=== PATIENT | female | born 1970 | race Caucasian/White ===

== ENCOUNTER → 2016-10-20 | Outpatient (CLI) | payer BC, OTHER ==
--- NOTE | 2016-10-21 07:06 | MM ---
Reason for exam: additional evaluation requested from abnormal screening. Last mammogram was performed 1 month ago. History: Patient history of other cancer. Implants in both breasts, 1999. Excisional biopsy of the left breast, 1988. Physical Findings: Nurse did not find any significant physical abnormalities on exam. MG Work Up Marianela W/Imp W/CAD L LM and MLO view(s) were taken of the left breast. Prior study comparison: September 17, 2016, bilateral MG screening mammo implant/CAD. October 12, 2014, bilateral MG diagnostic mammo w CAD JOAN. The breast tissue is heterogeneously dense. This may lower the sensitivity of mammography. There is no discrete abnormality under compression area appear to disperse. These results were verbally communicated with the patient and result sheet given to the patient on 10/20/16. ASSESSMENT: Probably benign, BI-RAD 3 RECOMMENDATION: Follow-up diagnostic mammogram of the left breast in 6 months.
== END | disposition home or self-care (01) ==
LOC: RADMAMWWP 15:36
PROVIDERS: ATTEND Family Medicine
DX: R92.8 Other abnormal and inconclusive findings on diagnostic imaging of breast (principal)

== ENCOUNTER → 2018-07-13 | Outpatient (CLI) | payer BC ==
[2018-07-13 17:40] LABS: Basophils # (A) 0.1 k/uL (0-0.2); Basophils % (A) 1 %; Eosinophils # (A) 0.5 k/uL (0-0.7); Eosinophils % (A) 8 %; HCT 43.8 % (34.0-46.0); HGB 14.1 gm/dL (11.4-16.0); Lymphocytes # (A) 2.8 k/uL (1.0-4.8); Lymphocytes % (A) 41 %; MCH 32.2 pg (25.0-35.0); MCHC 32.2 g/dL (31.0-37.0); MCV 99.8 fL (80.0-100.0); Mean Platelet Volume 7.7; Monocytes # (A) 0.3 k/uL (0-1.0); Monocytes % (A) 4 %; Neutrophils # (A) 2.9 k/uL (1.3-7.7); Neutrophils % (A) 43 %; Platelet Count 222 k/uL (150-450); RBC 4.39 m/uL (3.80-5.40); RDW 12.5 % (11.5-15.5); WBC 6.8 k/uL (3.8-10.6)
[2018-07-14 02:50] LABS: Albumin 4.2 g/dL (3.80-4.90); Albumin/Globulin Ratio 2.21 (1.20-2.10); Anion Gap 3.2 mmol/L (4.00-12.00); Calcium 9.1 mg/dL (8.7-10.3); Carbon Dioxide 30.8 mmol/L (21.6-31.8); Globulin 1.9 g/dL (2.1-3.7); Potassium 4.2 mmol/L (3.5-5.5); Total Bilirubin 0.1 mg/dL (0.2-1.2); Total Protein 6.1 g/dL (6.2-8.2)
== END | disposition home or self-care (01) ==
LOC: LABWHC1 17:14
PROVIDERS: ATTEND Family Medicine
DX: R19.7 Diarrhea, unspecified (principal)
CPT/HCPCS: 36415; 80053; 85025

== ENCOUNTER → 2018-09-03 | Outpatient (CLI) | payer BC ==
[2018-09-03 12:22] LABS: HCT 50.1 % (34.0-46.0); HGB 16.2 gm/dL (11.4-16.0); MCH 32.7 pg (25.0-35.0); MCHC 32.3 g/dL (31.0-37.0); MCV 101.4 fL (80.0-100.0); Macrocytosis Slight; Mean Platelet Volume 7.2; Platelet Count 284 k/uL (150-450); RBC 4.94 m/uL (3.80-5.40); WBC 6.6 k/uL (3.8-10.6)
[2018-09-03 12:52] LABS: Erythrocyte Sedimentation Rate 3 mm/hr (0-20)
[2018-09-05 10:50] LABS: Gliadin AB IgA, Unit 0.3 U/mL
== END | disposition home or self-care (01) ==
LOC: LABWHC1 11:42
PROVIDERS: ATTEND Internal Medicine Gastroenterology
DX: K52.9 Noninfective gastroenteritis and colitis, unspecified (principal)
CPT/HCPCS: 36415; 83516; 85027; 85652; 86140

== ENCOUNTER → 2018-09-30 | Outpatient (CLI) | payer BC ==
--- NOTE | 2018-10-07 10:03 | MM ---
Reason for exam: additional evaluation requested from prior study. Last mammogram was performed 1 year and 11 months ago. History: Patient history of other cancer. Implants in both breasts, 1999. Excisional biopsy of the left breast, 1988. Physical Findings: Nurse Summary: a 0.5 cm dominant mass at 2 and 7 o'clock in the right breast . MG 3D Diag Mammo Imp W/Cad JOAN Bilateral CC, MLO, and ID view(s) were taken. Prior study comparison: October 20, 2016, left breast MG work up tomasa w/imp w/CAD L. September 17, 2016, bilateral MG screening mammo implant/CAD. The breast tissue is extremely dense which could obscure a lesion on mammography. There are benign-appearing bilateral breast calcifications. Abnormal morphology or implant correlate clinically for injury. ASSESSMENT: Incomplete: need additional imaging evaluation, BI-RAD 0 RECOMMENDATION: Ultrasound of the right breast.
--- NOTE | 2018-10-07 10:14 | USB ---
History: Patient history of other cancer. Implants in both breasts, 1999. Excisional biopsy of the left breast, 1988. US Breast Limited RT Right limited breast ultrasound including focal area of concern, retroareolar and axilla demonstrates a 0.4 x 0.3 x 0.5 cm oval cystic lesion at the BB at 2 o'clock that previously measured 0.5 x 0.4 x 0.5 in 2015. A 0.6 x 0.3 x 0.7 cm oval cystic lesion at the BB at 7 o'clock that previously measured 0.7 x 0.2 x 0.6 in 2015, and a 0.5 x 0.3 x 0.3 cm oval cystic lesion that previously measured 0.8 x 0.3 x 0.4 in 2015 all appear similar and benign. These results were verbally communicated with the patient and result sheet given to the patient on 10/03/18. ASSESSMENT: Benign, BI-RAD 2 RECOMMENDATION: Routine screening mammogram of both breasts in 1 year.
== END | disposition home or self-care (01) ==
LOC: RADMAMWWP 15:56
PROVIDERS: ATTEND Family Medicine
DX: R92.8 Other abnormal and inconclusive findings on diagnostic imaging of breast (principal)
CPT/HCPCS: 77062; 77066

== ENCOUNTER 2021-07-28 04:49 | Emergency (ER) | payer BC ==
[2021-07-28 05:04] VITALS: TEMP 98.8
[2021-07-28] MEDS ORDERED: SODIUM CHLORIDE 0.9% 500 ML 500 ML IV STA (05:32)
[2021-07-28] MEDS ORDERED: ONDANSETRON 4 MG/2 ML VIAL IVP STA (05:32)
[2021-07-28] MEDS ORDERED: MORPHINE SULFATE 4 MG/ML SYRINGE IV STA (05:32)
--- NOTE | 2021-07-28 05:40 | ED ---
Abdominal Pain HPI - General Chief Complaint: Abdominal Pain Stated Complaint: Abd Pain Time Seen by Provider: 07/28/21 05:06 Source: patient, family Mode of arrival: ambulatory Limitations: no limitations - History of Present Illness MD Complaint: abdominal pain Onset/Timin -: hour(s) Location: diffuse Radiation: none Migration to: no migration Severity: severe Quality: stabbing Consistency: constant Improves With: nothing Worsens With: nothing Associated Symptoms: nausea, vomiting, diarrhea - Related Data Previous Rx's Medication Instructions Recorded Dicyclomine [Bentyl] 20 mg PO QID #15 tablet 07/28/21 Famotidine [Pepcid] 20 mg PO BID #14 tablet 07/28/21 Allergies Allergy/AdvReac Type Severity Reaction Status Date / Time No Known Allergies Allergy Verified 07/28/21 05:04 Review of Systems ROS Statement: Those systems with pertinent positive or pertinent negative responses have been documented in the HPI. ROS Other: All systems not noted in ROS Statement are negative. Constitutional: Denies: fever, chills, weakness Respiratory: Denies: cough, dyspnea Cardiovascular: Denies: chest pain, palpitations, edema Gastrointestinal: Reports: abdominal pain, nausea, vomiting, diarrhea. Denies: constipation, hematemesis Genitourinary: Denies: dysuria, hematuria Musculoskeletal: Denies: back pain Skin: Denies: rash Neurological: Denies: headache, weakness, numbness Past Medical History Past Medical History: Asthma History of Any Multi-Drug Resistant Organisms: None Reported Past Surgical History: Breast Surgery, Tonsillectomy Additional Past Surgical History / Comment(s): colonoscopy Past Psychological History: No Psychological Hx Reported Smoking Status: Current some day smoker Past Alcohol Use History: None Reported Past Drug Use History: None Reported General Exam Limitations: no limitations General appearance: alert, in no apparent distress Head exam: Present: atraumatic, normocephalic Eye exam: Present: normal appearance. Absent: scleral icterus, conjunctival injection Neck exam: Present: normal inspection Respiratory exam: Present: normal lung sounds bilaterally. Absent: respiratory distress, wheezes, rales, rhonchi, stridor Cardiovascular Exam: Present: regular rate, normal rhythm, normal heart sounds. Absent: systolic murmur, diastolic murmur, rubs, gallop GI/Abdominal exam: Present: soft. Absent: distended, tenderness, guarding, rebound, rigid, mass Extremities exam: Present: normal inspection, normal capillary refill. Absent: pedal edema, calf tenderness Back exam: Present: normal inspection. Absent: CVA tenderness (R), CVA tenderness (L) Neurological exam: Present: alert Skin exam: Present: warm, dry, intact, normal color. Absent: rash Course Vital Signs 07/28/21 07/28/21 07/28/21 04:58 05:48 06:46 Temperature 98.8 F Pulse Rate 65 60 60 Respiratory 20 18 18 Rate Blood Pressure 97/69 114/67 100/63 O2 Sat by Pulse 98 97 97 Oximetry Medical Decision Making - Lab Data Result diagrams: 07/28/21 05:44 07/28/21 05:44 Lab Results 07/28/21 07/28/21 Range/Units 05:44 05:44 WBC 9.6 (3.8-10.6) k/uL RBC 4.72 (3.80-5.40) m/uL Hgb 15.0 (11.4-16.0) gm/dL Hct 44.3 (34.0-46.0) % MCV 93.7 (80.0-100.0) fL MCH 31.7 (25.0-35.0) pg MCHC 33.8 (31.0-37.0) g/dL RDW 12.0 (11.5-15.5) % Plt Count 230 (150-450) k/uL MPV 8.5 Neutrophils % 71 % Lymphocytes % 24 % Monocytes % 4 % Eosinophils % 1 % Basophils % 0 % Neutrophils # 6.8 (1.3-7.7) k/uL Lymphocytes # 2.3 (1.0-4.8) k/uL Monocytes # 0.3 (0-1.0) k/uL Eosinophils # 0.1 (0-0.7) k/uL Basophils # 0.0 (0-0.2) k/uL Sodium 136 L (137-145) mmol/L Potassium 3.6 (3.5-5.1) mmol/L Chloride 105 (98-107) mmol/L Carbon Dioxide 21 L (22-30) mmol/L Anion Gap 10 mmol/L BUN 25 H (7-17) mg/dL Creatinine 0.54 (0.52-1.04) mg/dL Est GFR (CKD-EPI)AfAm >90 (>60 ml/min/1.73 sqM) Est GFR (CKD-EPI)NonAf >90 (>60 ml/min/1.73 sqM) Glucose 126 H (74-99) mg/dL Calcium 9.4 (8.4-10.2) mg/dL Total Bilirubin 0.7 (0.2-1.3) mg/dL AST 32 (14-36) U/L ALT 33 (4-34) U/L Alkaline Phosphatase 88 (38-126) U/L C-Reactive Protein 3.3 H (<1.0) mg/dL Total Protein 6.8 (6.3-8.2) g/dL Albumin 4.2 (3.5-5.0) g/dL Amylase 35 (30-110) U/L Lipase 33 (23-300) U/L Disposition Clinical Impression: Abdominal pain Disposition: HOME SELF-CARE Condition: Good Instructions (If sedation given, give patient instructions): Abdominal Pain (ED) Prescriptions: Dicyclomine [Bentyl] 20 mg PO QID #15 tablet Famotidine [Pepcid] 20 mg PO BID #14 tablet Is patient prescribed a controlled substance at d/c from ED?: No Referrals: Louann Ac MD [Primary Care Provider] - 1-2 days
[2021-07-28 05:49] VITALS: RESP 18
[2021-07-28 05:54] LABS: Basophils % (A) 0 %; Eosinophils # (A) 0.1 k/uL (0-0.7); Eosinophils % (A) 1 %; HCT 44.3 % (34.0-46.0); Lymphocytes # (A) 2.3 k/uL (1.0-4.8); Lymphocytes % (A) 24 %; MCH 31.7 pg (25.0-35.0); MCHC 33.8 g/dL (31.0-37.0); MCV 93.7 fL (80.0-100.0); Mean Platelet Volume 8.5; Monocytes # (A) 0.3 k/uL (0-1.0); Monocytes % (A) 4 %; Neutrophils # (A) 6.8 k/uL (1.3-7.7); Neutrophils % (A) 71 %; Platelet Count 230 k/uL (150-450); RBC 4.72 m/uL (3.80-5.40); WBC 9.6 k/uL (3.8-10.6)
--- NOTE | 2021-07-28 06:05 | XR ---
EXAMINATION TYPE: XR abdomen acute w cxr DATE OF EXAM: 07/28/2021 COMPARISON: 10/16/2010 HISTORY: Abdominal pain. Vomiting. TECHNIQUE: 4 views FINDINGS: Lung bases are clear. Bowel gas pattern is normal. There is no sign of intestinal obstruction or pneumoperitoneum. Fecal pa ttern is normal. There is no evidence of a mass. There are no pathologic calcifications over the kidn eys. IMPRESSION: Nonacute abdomen. No cardiopulmonary disease. No adverse change.
[2021-07-28 06:06] LABS: ALT 33 U/L (4-34); AST 32 U/L (14-36); African American GFR (CKD) >90 (>60 ml/min/1.73 sqM); Albumin 4.2 g/dL (3.5-5.0); Alkaline Phosphatase 88 U/L (38-126); Amylase 35 U/L (30-110); Anion Gap 10 mmol/L; Blood Urea Nitrogen 25 mg/dL (7-17); C Reactive Protein 3.3 mg/dL (<1.0); Calcium 9.4 mg/dL (8.4-10.2); Carbon Dioxide 21 mmol/L (22-30); Chloride 105 mmol/L (98-107); Glucose 126 mg/dL (74-99); Lipase 33 U/L (23-300); Non-African American GFR(CKD) >90 (>60 ml/min/1.73 sqM); Potassium 3.6 mmol/L (3.5-5.1); Sodium 136 mmol/L (137-145); Total Bilirubin 0.7 mg/dL (0.2-1.3); Total Protein 6.8 g/dL (6.3-8.2)
[2021-07-28] MEDS ORDERED: MAG HYDROX/AL HYDROX/SIMETH 30 ML, HYOSCYAMINE ELIXIR 10 ML, LIDOCAINE VISCOUS 2% 10 ML PO STA ×3 (06:52)
[2021-07-28 07:52] VITALS: BP 104/64; PULSE 61
== END 2021-07-28 07:52 | disposition home or self-care (01) ==
LOC: EC 04:49
DX: R10.84 Generalized abdominal pain (principal); R11.2 Nausea with vomiting, unspecified; R19.7 Diarrhea, unspecified; J45.909 Unspecified asthma, uncomplicated; F17.200 Nicotine dependence, unspecified, uncomplicated
CPT/HCPCS: 36415; 80053; 82150; 83690; 85025; 86140; 74022; 99284; 96374; 96375; J2270; J2405

== ENCOUNTER → 2021-12-15 | Outpatient (CLI) | payer BC ==
--- NOTE | 2021-12-16 11:08 | US ---
EXAMINATION TYPE: US thyroid st tissue head/neck DATE OF EXAM: 12/15/2021 COMPARISON: NONE CLINICAL HISTORY: R22.1 SWELLING MASS. At right supraclavicular palpable is a mass with somewhat irregular borders measuring 1.5 x 1.0 x 1. 4cm. Vascular flow is noted centrally. This has some central hyperintensity may be abnormal lymph nod e. IMPRESSION: 1. There appears to be a suspicious lymph node at the level of palpable abnormality right supraclavic ular region. Consider biopsy.
== END | disposition home or self-care (01) ==
LOC: RADUSWWP 16:56
PROVIDERS: ATTEND Family Medicine
DX: R22.1 Localized swelling, mass and lump, neck (principal)
CPT/HCPCS: 76536

== ENCOUNTER → 2022-01-21 | Outpatient (CLI) | payer BC ==
--- NOTE | 2022-01-22 08:04 | CT ---
EXAMINATION TYPE: CT soft tissue neck w con DATE OF EXAM: 01/21/2022 COMPARISON: None HISTORY: h/o lump on right side of neck, bb was placed over it CT DLP: 604.1 mGycm CONTRAST: CT scan of the neck is performed with IV Contrast, patient injected with 100 mL of Isovue 300. Contrast enhanced CT of the neck was performed from the skull base through the lung apices. At the site of clinical concern right supraclavicular region there is a soft tissue mass noted measur ing 1.5 x 1.7 cm with mild surrounding spiculation. May reflect an abnormal lymph node. Consider tiss ue diagnosis. No additional nodules are seen within the supraclavicular regions. AIRWAY: The supraglottic, glottic, and subglottic portions of the airway appear patent and free of mass. SALIVARY GLANDS: The submandibular and parotid glands are free of mass or inflammatory process. THYROID GLAND: No nodules or masses seen. LYMPH NODES: No adenopathy seen greater than 1cm. LUNG APICES: No nodule or mass is seen. OTHER: Vascular structures are patent. No significant degenerative change of the cervical spine. N o abscess seen. IMPRESSION: At the site of clinical concern right supraclavicular region there is a soft tissue mass noted measur ing 1.5 x 1.7 cm with mild surrounding spiculation. May reflect an abnormal lymph node. Consider tiss ue diagnosis. No additional nodules are seen within the supraclavicular regions.
== END | disposition home or self-care (01) ==
LOC: RADCTMAIN 18:09
PROVIDERS: ATTEND Otolaryngology
DX: R22.1 Localized swelling, mass and lump, neck (principal)
CPT/HCPCS: 70491; Q9967

== ENCOUNTER 2022-02-19 08:51 | Day surgery (SDC) | payer BC ==
[2022-02-19 09:19] VITALS: RESP 16; TEMP 97.9
[2022-02-19] MEDS ORDERED: ALPRAZolam 0.5 MG TAB PO STA (09:19)
--- NOTE | 2022-02-19 10:29 | US ---
ULTRASOUND GUIDED CORE BIOPSY RIGHT NECK MASS: CLINICAL HISTORY: Right neck mass FINDINGS: The procedure was explained to the patient. The risks, complications, benefits and alternatives were discussed and any questions were answered. Informed consent was obtained. Patient was placed supin e on the ultrasound table and prepped and draped in the usual sterile fashion. Utilizing a 18 gauge needle, two passes were made into the right neck mass. Patient was stable throughout the procedure. Pathology is pending. All elements of maximal barrier and sterile technique were utilized. IMPRESSION: 1. Successful ultrasound guided core biopsy right neck mass.
[2022-02-19 10:38] VITALS: BP 115/69; PULSE 68
== END 2022-02-19 10:31 | disposition home or self-care (01) ==
LOC: RADPROMAIN 08:51
PROVIDERS: ATTEND Otolaryngology
DX: C76.0 Malignant neoplasm of head, face and neck (principal)
CPT/HCPCS: 21550; 38505; 76942; 88305; 88341; 88342

== ENCOUNTER → 2022-02-23 | Outpatient (CLI) | payer BC ==
--- NOTE | 2022-02-24 20:05 | MM ---
Reason for Exam: Screening (asymptomatic). Last mammogram was performed 3 year(s) and 5 month(s) ago. Patient History: Menarche at age 14. First Full-Term at age 23. Other cancer. 1988, Excisional Biopsy on the Left side. 1999, Bilateral Implants. Risk Values: Maggie 5 year model risk: 1.3%. NCI Lifetime model risk: 10.1%. Prior Study Comparison: 09/17/2016 Bilateral Screening Mammogram, [facility]. 10/20/2016 Left Diagnostic Mammogram, [facility]. 09/30/2018 Bilateral Diagnostic Mammogram, [facility]. Tissue Density: The breast tissue is heterogeneously dense. This may lower the sensitivity of mammography. Findings: Analyzed By CAD. Bilateral saline implants are demonstrated. The right implant is smaller and the capsule appears calcified. There is some underlying fluctuating nodularity on both sides for which ultrasound is recommended given the background of dense tissues. No suspicious calcifications are seen. Overall Assessment: Incomplete: need additional imaging evaluation, BI-RAD 0 Management: Diagnostic Breast Ultrasound of both breasts. Bilateral breast ultrasounds for fluctuating nodularity on a background of dense tissues. Electronically signed and approved by: Cassie Ovalle M.D. Radiologist
== END | disposition home or self-care (01) ==
LOC: RADMAMWWP 16:34
PROVIDERS: ATTEND Family Medicine
DX: Z12.31 Encounter for screening mammogram for malignant neoplasm of breast (principal)
CPT/HCPCS: 77063; 77067

== ENCOUNTER → 2022-03-20 | Outpatient (CLI) | payer BC | END | disposition home or self-care (01) | LOC: RADPETMAIN 16:46 | PROVIDERS: ATTEND Otolaryngology | DX: C44.42 Squamous cell carcinoma of skin of scalp and neck (principal) | CPT/HCPCS: 78815; A9552 ==

== ENCOUNTER 2023-02-15 16:01 | Emergency (ER) | payer BC ==
[2023-02-15 16:17] VITALS: TEMP 97.5
--- NOTE | 2023-02-15 17:54 | XR ---
EXAMINATION TYPE: XR soft tissue neck DATE OF EXAM: 02/15/2023 5:33 PM INDICATION: Patient age:Female; 52 years old; Reason for study: L neck swelling; COMPARISON: MRI 11/09/2022, CT 01/21/2022 TECHNIQUE: The soft tissues of the neck were imaged in frontal and lateral views. FINDINGS: There is increased opacification over the soft tissue of the anterior neck multiple surgica l clips are present. The osseous structures are grossly unremarkable.. IMPRESSION: Postsurgical changes with increased edema felt to be projecting over the anterior neck just below the mandible. Further evaluation recommended.
[2023-02-15] MEDS ORDERED: CEPHALEXIN 500 MG CAP PO STA (18:43)
[2023-02-15] MEDS ORDERED: SULFAMETHOX-TMP 800-160MG 1 EACH TAB PO STA (18:43)
--- NOTE | 2023-02-15 18:45 | ED ---
General Adult HPI - General Chief complaint: Shortness of Breath Stated complaint: EBONY-SOB Time Seen by Provider: 02/15/23 16:34 Source: patient Mode of arrival: ambulatory Limitations: no limitations - History of Present Illness Initial comments: This patient is a 52-year-old woman who presents evaluation of swelling to the left face/submandibular area. The patient states that this has come on over the past few hours. She does note that there appeared to be a small bite or something that she had scratched in that area prior to onset. Patient denies fever or chills. There is no change in speech. No change in swallowing. She tolerates oral intake -: hour(s) Location: face, neck Radiation: non-radiation Quality: dull Consistency: constant Improves with: none Worsens with: none Associated Symptoms: denies other symptoms - Related Data Home Medications Medication Instructions Recorded Confirmed Albuterol Inhaler [Ventolin Hfa 2 puff INHALATION RT-TID PRN 02/13/22 02/13/22 Inhaler] Citalopram Hydrobromide [CeleXA] 40 mg PO DAILY 02/13/22 02/13/22 HYDROcodone/APAP 7.5-325MG [Hiram 1 tab PO Q4H PRN 02/13/22 02/13/22 7.5-325] Multivitamin [Multivitamins Adult 1 each PO DAILY 02/13/22 02/13/22 Gummies] Tolterodine Tartrate [Detrol LA] 2 mg PO DAILY 02/13/22 02/13/22 busPIRone HCL 5 mg PO BID 02/13/22 02/13/22 Previous Rx's Medication Instructions Recorded Famotidine [Pepcid] 20 mg PO BID #14 tablet 07/28/21 Cephalexin [Keflex] 500 mg PO Q6HR #28 cap 02/15/23 Sulfamethox-Tmp 800-160Mg [Bactrim 1 each PO Q12HR #6 tab 02/15/23 Ds] Allergies Allergy/AdvReac Type Severity Reaction Status Date / Time No Known Allergies Allergy Verified 02/15/23 16:16 Review of Systems ROS Statement: Those systems with pertinent positive or pertinent negative responses have been documented in the HPI. ROS Other: All systems not noted in ROS Statement are negative. Constitutional: Denies: fever, chills, weakness Eyes: Denies: eye pain ENT: Denies: throat pain, congestion Respiratory: Denies: cough, dyspnea Cardiovascular: Denies: chest pain Gastrointestinal: Denies: nausea, vomiting Skin: Reports: as per HPI, lesions Neurological: Denies: headache, weakness Past Medical History Past Medical History: Asthma, Cancer Additional Past Medical History / Comment(s): skin cancer - face, back History of Any Multi-Drug Resistant Organisms: None Reported Past Surgical History: Breast Surgery, Tonsillectomy, Uterine Ablation Additional Past Surgical History / Comment(s): colonoscopy, skin cancer removed from face and back - basal cell Ca Past Anesthesia/Blood Transfusion Reactions: No Reported Reaction Past Psychological History: Anxiety Smoking Status: Former smoker Past Alcohol Use History: None Reported Past Drug Use History: Marijuana - Past Family History Father Family Medical History: Cancer Additional Family Medical History / Comment(s): prostate Cancer General Exam Limitations: no limitations General appearance: alert, in no apparent distress Head exam: Present: atraumatic, normocephalic Eye exam: Present: normal appearance. Absent: scleral icterus, conjunctival injection ENT exam: Present: normal oropharynx, mucous membranes moist Neck exam: Present: normal inspection, tenderness, full ROM. Absent: meningis mus Respiratory exam: Present: normal lung sounds bilaterally, other (The patient does have small area of cellulitis left submandibular with mild tenderness. There is no palpable fluid collection. No palpable mass). Absent: respiratory distress, wheezes, rales, rhonchi Cardiovascular Exam: Present: regular rate, normal rhythm, normal heart sounds. Absent: systolic murmur, diastolic murmur, rubs, gallop Neurological exam: Present: alert Skin exam: Present: warm, dry, erythema, other (Area of cellulitis as above). Absent: rash Course Vital Signs 02/15/23 02/15/23 02/15/23 16:13 17:00 18:00 Temperature 97.5 F L Pulse Rate 85 72 68 Respiratory 20 12 14 Rate Blood Pressure 116/81 117/77 106/72 O2 Sat by Pulse 99 97 97 Oximetry 02/15/23 19:34 Temperature Pulse Rate 67 Respiratory 18 Rate Blood Pressure 104/65 O2 Sat by Pulse 99 Oximetry EKG Findings - EKG Results: EKG: interpreted by ERMD, sinus rhythm (Rate 70 bpm), normal axis, normal QRS, normal ST/T, no acute changes - SD, Pacemaker, Normal: Normal tracing: normal tracing Medical Decision Making - Medical Decision Making This patient is 52-year-old woman with some cellulitis that appears to have developed from an abraded area that had been scratched. The patient did descr sharon feeling anxious and short of breath, but this appears to be due to anxiety. Soft tissue x-ray of the neck is obtained which I interpreted as showing normal airway diameter and no evidence of soft tissue air. The patient is started on antibiotics here and we discussed appropriate further care and follow-up as well as return parameters. Was pt. sent in by a medical professional or institution (, PA, SMOKE ROOM OPERATOR, urgent care, hospital, or fci...) When possible be specific @ -[No] Did you speak to anyone other than the patient for history (EMS, parent, family, police, friend...)? What history was obtained from this source @ -[No] Did you review nursing and triage notes (agree or disagree)? Why? @ -[I reviewed and agree with nursing and triage notes] Were old charts reviewed (outside hosp., previous admission, EMS record, old EKG, old radiological studies, urgent care reports/EKG's, fci records)? Report findings @ -[No old charts were reviewed] Differential Diagnosis (chest pain, altered mental status, abdominal pain women, abdominal pain men, vaginal bleeding, weakness, fever, dyspnea, syncope, headache, dizziness, GI bleed, back pain, seizure, CVA, palpatations, mental health, musculoskeletal)? @ -[Differential diagnosis of the patient's condition includes cellulitis, dental infection with blood was angina, other infectious conditions, trauma, hematoma, ALLERGIC reaction, amongst other conditions EKG interpreted by me (3pts min.). @ -[ X-rays interpreted by me (1pt min.). @ -[As above CT interpreted by me (1pt min.). @ -[None done] U/S interpreted by me (1pt. min.). @ -[None done] What testing was considered but not performed or refused? (CT, X-rays, U/S, labs)? Why? @ -[None] What meds were considered but not given or refused? Why? @ -[None] Did you discuss the management of the patient with other professionals (professionals i.e. , PA, SMOKE ROOM OPERATOR, lab, RT, psych nurse, social director, member service specialist, teacher, workplace rehabilitation officer, wrapper caser)? Give summary @ -[No] Was smoking cessation discussed for >3mins.? @ -[No] Was critical care preformed (if so, how long)? @ -[No] Were there social determinants of health that impacted care today? How? (Homelessness, low income, unemployed, alcoholism, drug addiction, transportation, low edu. Level, literacy, decrease access to med. care, nursing home, rehab)? @ -[No] Was there de-escalation of care discussed even if they declined (Discuss DNR or withdrawal of care, Hospice)? DNR status @ -[No] What co-morbidities impacted this encounter? (DM, HTN, Smoking, COPD, CAD, Cancer, CVA, ARF, Chemo, Hep., AIDS, mental health diagnosis, sleep apnea, morbid obesity)? @ -[None] Was patient admitted / discharged? Hospital course, mention meds given and route, prescriptions, significant lab abnormalities, going to OR and other pertinent info. @ -[Discharged Undiagnosed new problem with uncertain prognosis? @ -[No] Drug Therapy requiring intensive monitoring for toxicity (Heparin, Nitro, Insulin, Cardizem)? @ -[No] Were any procedures done? @ -[No] Diagnosis/symptom? @ -Cellulitis or wound infection of the left anterior neck Acute, or Chronic, or Acute on Chronic? @ -[Acute Uncomplicated (without systemic symptoms) or Complicated (systemic symptoms)? @ -[Uncomplicated Side effects of treatment? @ -[No] Exacerbation, Progression, or Severe Exacerbation? @ -[No] Poses a threat to life or bodily function? How? (Chest pain, USA, SD, pneumonia, PE, COPD, DKA, ARF, appy, cholecystitis, CVA, Diverticulitis, Homicidal, Suicidal, threat to staff... and all critical care pts) @ -[No] Disposition Clinical Impression: Cellulitis Disposition: HOME SELF-CARE Condition: Good Instructions (If sedation given, give patient instructions): Cellulitis (ED) Prescriptions: Sulfamethox-Tmp 800-160Mg [Bactrim Ds] 1 each PO Q12HR #6 tab Cephalexin [Keflex] 500 mg PO Q6HR #28 cap Is patient prescribed a controlled substance at d/c from ED?: No Referrals: Louann Ac MD [Primary Care Provider] - 1-2 days
[2023-02-15] MEDS ORDERED: ceFAZolin 1,000 MG VIAL (IM USE) IM STA (18:54)
[2023-02-15 19:34] VITALS: BP 104/65; PULSE 67; RESP 18
== END 2023-02-15 19:37 | disposition home or self-care (01) ==
LOC: EC 16:01
DX: L03.221 Cellulitis of neck (principal); J45.909 Unspecified asthma, uncomplicated; F41.9 Anxiety disorder, unspecified; F12.90 Cannabis use, unspecified, uncomplicated; Z79.899 Other long term (current) drug therapy; Z87.891 Personal history of nicotine dependence
CPT/HCPCS: 93005; 70360; 99285; 96372; J0690

== ENCOUNTER → 2023-10-01 | Outpatient (CLI) | payer SELFPAY ==
--- NOTE | 2023-10-04 14:57 | PE ---
EXAMINATION TYPE: PET CT fusion skull to thigh DATE OF EXAM: 10/01/2023 COMPARISON: No recent pertinent CT Prior PET/CT: 11/06/2022 HISTORY: Lymphoma TECHNIQUE: Following the intravenous administration of 10.75 mCi of F-18 FDG, whole body images are performed from the skull base to the midthigh. Images are reviewed on the computer in the coronal, a xial, and sagittal planes. Reconstructed rotating images are created on independent workstation and reviewed on the computer. A localization and attenuation correction CT is performed in conjunction with the PET scan. DLP: 433.53 mGycm SCAN: Subsequent Blood glucose: 94 mg/dL Average Mediastinum SUV: 1.81 Average Liver SUV: 2.1 FINDINGS: NECK: Some residual right supraclavicular uptake may be present, example image 65, SUV 3.67. The upt nicci from the previous exam is largely resolved THORAX: There is a focal area of increased uptake within the posterior medial left upper lobe, exampl e image 80, SUV 7.15. There is uptake within the right middle lobe, image 24, SUV 4.6. There is a large density with increased uptake within the lateral right lung, image 110, SUV 9.35. ABDOMEN: No abnormal uptake PELVIS: There is a small lymph node within the right inguinal region with increased uptake, SUV 3.9, image 238. OSSEOUS STRUCTURES: No abnormal uptake LOCALIZATION CT: Uptake on PET scan correlates with the lung mass is identified on CT. COMPARISON: Previous right supraclavicular uptake is not evident on the current exam lung masses are new over the interval. Breast prostheses have been removed over the interval. IMPRESSION: 1. New areas of uptake within the left and right lungs felids discussed above. These correlate with t he localization CT findings. 2. Previous right supraclavicular uptake poorly visualized on current examination. This is largely re solved with some residual.
== END | disposition home or self-care (01) ==
LOC: RADPETMAIN 10:33
PROVIDERS: ATTEND Otolaryngology
DX: C44.622 Squamous cell carcinoma of skin of right upper limb, including shoulder (principal); Z98.890 Other specified postprocedural states
CPT/HCPCS: 78815; A9552

== ENCOUNTER → 2023-11-02 | Outpatient (CLI) | payer SELFPAY ==
--- NOTE | 2023-11-04 20:51 | CT ---
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 CONTRAST: Performed injected with 100 mL of Isovue 300. TECHNIQUE: Axial images were obtained at 5 mm thick sections. Reconstructed images are reviewed on [employer] computer in the coronal plane. FINDINGS: Portion of the thyroid visualized is normal. There is an irregular 1.9 x 0.8 cm density at the medial left apex. Series 4 image 14. There is irregular 1.5 x 2.1 cm density which may have a solid 0.7 cm eccentric component. Series 4 i mage 32. There is a 2.0 x 2.7 cm rounded mass lateral left lung. Series 4 image 36. Diffuse emphysematous changes are present greater in the upper lung boone. Pneumatoceles in the supe rior segment right lower lobe. No enlarged mediastinal or hilar adenopathy is evident. The ascending aorta diameter at the level o f the main pulmonary artery is 3.2 cm. The main pulmonary artery diameter at the bifurcation is 2.[address] sections are obtained through the upper abdomen. Abdomen is essentially unremarkable. IMPRESSION: 1. Several bilateral lung nodules or masses suspicious for metastatic disease. These were hyperintens e on PET/CT. This appears more solid at the medial left apex and along the left lung margin. This may have enlarged in the right middle lobe.
== END | disposition home or self-care (01) ==
LOC: RADCTMAIN 11:04
PROVIDERS: ATTEND Internal Medicine
DX: R91.8 Other nonspecific abnormal finding of lung field (principal); C44.82 Squamous cell carcinoma of overlapping sites of skin; G43.909 Migraine, unspecified, not intractable, without status migrainosus; J43.9 Emphysema, unspecified; R06.02 Shortness of breath; Z71.3 Dietary counseling and surveillance
CPT/HCPCS: 71260; Q9967

== ENCOUNTER → 2024-02-25 | Outpatient (CLI) | payer SELFPAY ==
[2024-02-25 13:31] LABS: African American GFR (CKD) >90 (>60 ml/min/1.73 sqM); Blood Urea Nitrogen 21 mg/dL (7-17); Non-African American GFR(CKD) >90 (>60 ml/min/1.73 sqM)
--- NOTE | 2024-03-06 12:33 | CT ---
EXAMINATION TYPE: CT chest w con CT DLP: 578 mGycm, Automated exposure control for dose reduction was used. DATE OF EXAM: 02/25/2024 1:50 PM COMPARISON: CT chest 11/22/2023. CLINICAL INDICATION:Female, 53 years old with history of C44.622,Z85.828,C77.0,Z79.899,Z98.890; PHH, lymphoma in neck. Previous ION bronchoscopy biopsy results indicate pneumonia. TECHNIQUE: Multiple axial images were obtained through the chest. Sagittal and coronal reformats were created for review. Contrast used:100 mL of Isovue 300 with IV Contrast (None if empty) Oral contrast used: (None if empty) FINDINGS: LUNGS/ PLEURA: No consolidation. Centrilobular emphysema. A few previously identified lung nodules a re no longer seen suggesting resolution of an infectious or inflammatory process. AIRWAY: Patent and unremarkable. HEART: Size within normal limits. MEDIASTINUM: No pathologic adenopathy by CT size criteria. VASCULATURE: No aortic aneurysm. MUSCULOSKELETAL: No acute osseous abnormalities SOFT TISSUES/LYMPH NODES: Unremarkable. LOWER NECK: No significant findings. UPPER ABDOMEN: No significant findings. IMPRESSION: Centrilobular emphysema. A few previously identified lung nodules are no longer seen suggesting resolution of an infectious or inflammatory process. Follow up recommendations for incidental pulmonary nodules, if there are any, are per [employer] or [place]. [email or web address].org/articles/[email or web address]?lang=us
== END | disposition home or self-care (01) ==
LOC: RADCTMAIN 12:59
PROVIDERS: ATTEND Radiology Radiation Oncology
DX: C77.0 Secondary and unspecified malignant neoplasm of lymph nodes of head, face and neck (principal); C44.622 Squamous cell carcinoma of skin of right upper limb, including shoulder; J43.2 Centrilobular emphysema; Z85.828 Personal history of other malignant neoplasm of skin; Z79.899 Other long term (current) drug therapy; Z98.890 Other specified postprocedural states
CPT/HCPCS: 82565; 84520; 71260; 36415; Q9967

== ENCOUNTER → 2024-03-21 | Outpatient (CLI) | payer SELFPAY | END | disposition home or self-care (01) | LOC: LABWHC1 12:20 | PROVIDERS: ATTEND Internal Medicine Critical Care Medicine | DX: C44.92 Squamous cell carcinoma of skin, unspecified (principal) | CPT/HCPCS: 36415; 82784 ==

== ENCOUNTER → 2025-01-08 | Outpatient (CLI) | payer SELFPAY ==
--- NOTE | 2025-01-08 11:32 | CT ---
EXAMINATION TYPE: CT soft tissue neck w con DATE OF EXAM: 01/08/2025 11:21 AM COMPARISON: 10/01/2023, 02/25/2024. CLINICAL INDICATION: Female, 54 years old with history of C76.0 NECK CANCER; PHH, Prior hx neck ca, n ew lump RT side marked by BB. TECHNIQUE: Standard enhanced CT of the neck. Axial sections with coronal and sagittal reformats were obtained. Contrast used:100 mL of Isovue 300 with IV Contrast, (None if empty) Oral contrast used: (None if empty) CT DLP: 360 mGycm, Automated exposure control for dose reduction was used. FINDINGS: Brain: Visualized portions are grossly unremarkable. Orbits: Unremarkable Sinuses: Grossly unremarkable. Spaces of the neck: Postsurgical changes with multiple surgical clips in the right neck. Palpable mar ker correlates focal fat in this region with some postsurgical change no enlarged lymph node mass or organizing fluid collection identified.a. Musculoskeletal: No acute osseous pathology. Lymph nodes: Multiple nonenlarged lymph nodes are seen along both anterior chains of the neck. Vascular structures: Visualized major arteries are patent without evidence of aneurysm. Visualized in tracranial vasculature is without evidence for high-grade stenosis or aneurysmal dilation. Thoracic Inlet/airway: Airway is patent. Mild centrilobular emphysema changes in the lung apices. Soft tissues/Thyroid: Thyroid and remainder of the soft tissues are unremarkable. Other: none. IMPRESSION: 1. Palpable marker correlates with predominantly fatty tissue and an area postsurgical change. No en larged mass or lymphadenopathy identified. Consider follow-up PET/CT if there is concern for recurren ce. 2. Mild centrilobular emphysema. [facility], , 01/08/2025 11:30 AM
== END | disposition home or self-care (01) ==
LOC: RADCTMAIN 10:24
PROVIDERS: ATTEND Otolaryngology
DX: C76.0 Malignant neoplasm of head, face and neck (principal); J43.2 Centrilobular emphysema
CPT/HCPCS: 70491; Q9967